=== PATIENT | female | born 1975 ===

== ENCOUNTER 2016-08-24 20:32 | Emergency (ER) | payer MEDICAID ==
[2016-08-24 20:33] VITALS: BMI 29.2
[2016-08-24 21:15] VITALS: TEMP 98.2; O2SAT 98
--- NOTE | 2016-08-24 23:04 | CT ---
EXAM: CT Chest Without Intravenous Contrast CLINICAL HISTORY: 41 years old, female; Signs and symptoms; Other: R/O abscess left breast; Prior surgery; Surgery date: 6+ months; Surgery type: Implants TECHNIQUE: Axial computed tomography images of the chest without intravenous contrast. This CT exam was performed using one or more of the following dose reduction techniques: automated exposure control, adjustment of the mA and/or kV according to patient size, and/or use of iterative reconstruction technique. MIP reconstructed images were created and reviewed. Coronal and sagittal reformatted images were created and reviewed. EXAM DATE/TIME: 08/24/2016 9:31 PM COMPARISON: Recent chest radiographs) 01/21/2016 12:27:27 PM FINDINGS: LUNGS: No evidence of significant focal consolidation/infiltrate in the lungs. No evidence of diffuse pulmonary vascular congestion. PLEURAL SPACE: No pneumothorax or significant pleural effusions seen. HEART: No evidence of significant pericardial effusion. BONES/JOINTS: No acute fractures or other acute bony abnormality noted. SOFT TISSUES: Skin thickening involving the left breast. No focal fluid collection is seen in the left breast on this unenhanced exam to suggest a significant abscess. No evidence of soft tissue gas. Bilateral breast implants in place. No evidence of a significant christiano-implant fluid collection. Symmetric appearance of the breast parenchyma and bilateral breast implants. VASCULATURE: No thoracic aortic aneurysm. LYMPH NODES: No evidence of diffuse lymphadenopathy. IMPRESSION: - Skin thickening involving the left breast. In an acute setting, this could be secondary to cellulitis. Recommend clinical correlation. No focal abscesses identified. - Otherwise, no evidence of significant acute process on this unenhanced exam. - See above for remaining findings.
[2016-08-24 23:25] VITALS: BP 150/91; PULSE 93; RESP 18
[2016-08-24] MEDS ORDERED: Tmp-Smz 800 mg-160 mg DS Tab PO ONE (23:39)
--- NOTE | 2016-08-24 23:49 | ED PDOC ---
Arrival/HPI - General Chief Complaint: Breast Problem Time Seen by Provider: 08/24/16 21:11 Historian: Patient - History of Present Illness Narrative History of Present Illness (Text): 08/24/16 23:47 Laila Sanchez is a 41 year old female, with a history of peptic ulcer disease, presents to the emergency department complaining of 3 day duration of left breast swelling and erythema. Patient had breast implants approximately 10 years ago and thinks that they "may be leaking." Denies any fever, chills, headache, dizziness, nausea, vomiting, diarrhea, urinary symptoms or any other complaints at this time. Time/Duration: < week (3 days ) Symptom Onset: Gradual Symptom Course: Worsening Severity Level: Mild Activities at Onset: Light Past Medical History - Provider Review Nursing Documentation Reviewed: Yes - Infectious Disease Hx of Infectious Diseases: None - Past Medical History Past Medical History: No Previous - Hematological/Oncological Hx Blood Transfusions: No - Musculoskeletal/Rheumatological Hx Falls: No - Gastrointestinal Hx Gastrointestinal Ulcer: Yes - Psychiatric Hx Substance Use: No - Past Surgical History Past Surgical History: No Previous - Surgical History Other/Comment: breast implant - Anesthesia Hx Anesthesia: Yes Hx Anesthesia Reactions: Yes (tachycardia) Hx Malignant Hyperthermia: No Family/Social History - Physician Review Nursing Documentation Reviewed: Yes Family/Social History: No Known Family HX Smoking Status: Never Smoked Hx Alcohol Use: Yes Frequency of alcohol use: Socially Hx Substance Use: No Hx Substance Use Treatment: No Allergies/Home Meds Allergies/Adverse Reactions: Allergies No Known Allergies Allergy (Verified 02/28/14 05:03) Home Medications: Home Meds Medication Instructions Recorded Confirmed Omeprazole/Sodium Bicarbonate 1 cap PO 08/10/15 [Zegerid 20 mg Capsule] Review of Systems - Physician Review All systems were reviewed & negative as marked: Yes - Review of Systems Constitutional: Normal. absent: Fatigue, Fevers Respiratory: Normal. absent: SOB, Cough, Sputum Cardiovascular: Normal. absent: Chest Pain, Palpitations Gastrointestinal: Normal. absent: Abdominal Pain, Diarrhea, Nausea, Vomiting Musculoskeletal: Other (left breast swelling and erythema ) Skin: Normal Neurological: Normal. absent: Headache, Dizziness Psychiatric: Normal Physical Exam Vital Signs Reviewed: Yes Vital Signs Temp Pulse Resp BP Pulse Ox 08/24/16 23:00 93 H 18 150/91 H 98 08/24/16 21:14 98.2 F 95 H 20 153/90 H 98 Temperature: Afebrile Blood Pressure: Normal Pulse: Tachycardic Respiratory Rate: Normal Appearance: Positive for: Well-Appearing, Non-Toxic, Comfortable Pain Distress: None Mental Status: Positive for: Alert and Oriented X 3 - Systems Exam Head: Present: Atraumatic, Normocephalic Pupils: Present: PERRL Conjunctiva: Present: Normal Respiratory/Chest: Present: Clear to Auscultation, Good Air Exchange. No: Respiratory Distress, Accessory Muscle Use Cardiovascular: Present: Regular Rate and Rhythm, Normal S1, S2. No: Murmurs Abdomen: Present: Normal Bowel Sounds. No: Tenderness, Distention, Peritoneal Signs Breast/Axillary: Present: Erythema, Swelling. No: Fluctuance, Masses Upper Extremity: Present: Normal Inspection. No: Cyanosis, Edema Lower Extremity: Present: Normal Inspection. No: Edema Neurological: Present: GCS=15, CN II-XII Intact, Speech Normal, Motor Func Grossly Intact, Normal Sensory Function Skin: Present: Warm, Dry, Normal Color. No: Rashes Psychiatric: Present: Alert, Oriented x 3, Normal Insight, Normal Concentration Medical Decision Making ED Course and Treatment: 08/24/16 23:52 Impression: A 41 year old female who presents to the emergency department complaining of right breast swelling and erythema for past 3 days. Plan: -- CT chest without contrast -- Keflex -- Bactrim -- POC urine pregancy test Progress Notes: 08/25/16 02:54 CT Chest results reviewed. IMPRESSION: - Skin thickening involving the left breast. In an acute setting, this could be secondary to cellulitis. Recommend clinical correlation. No focal abscesses identified. - Otherwise, no evidence of significant acute process on this unenhanced exam. - See above for remaining findings. Patient is stable for discharge. Will discharge patient home on Keflex and Bactrim from cellulitis to left breast. Advised to present to emergency department for worsening symptoms and follow up with PMD within few days. - RAD Interpretation Narrative RAD Interpretations (Text): EXAM: CT Chest Without Intravenous Contrast FINDINGS: LUNGS: No evidence of significant focal consolidation/infiltrate in the lungs. No evidence of diffuse pulmonary vascular congestion. PLEURAL SPACE: No pneumothorax or significant pleural effusions seen. HEART: No evidence of significant pericardial effusion. BONES/JOINTS: No acute fractures or other acute bony abnormality noted. SOFT TISSUES: Skin thickening involving the left breast. No focal fluid collection is seen in the left breast on this unenhanced exam to suggest a significant abscess. No evidence of soft tissue gas. Bilateral breast implants in place. No evidence of a significant christiano-implant fluid collection. Symmetric appearance of the breast parenchyma and bilateral breast implants. VASCULATURE: No thoracic aortic aneurysm. LYMPH NODES: No evidence of diffuse lymphadenopathy. IMPRESSION: - Skin thickening involving the left breast. In an acute setting, this could be secondary to cellulitis. Recommend clinical correlation. No focal abscesses identified. - Otherwise, no evidence of significant acute process on this unenhanced exam. - See above for remaining findings. Radiology Orders: 08/24/16 21:31 CHEST W/O CONTRAST [CT] Stat Adolescent Counselor: Radiologist - Medication Orders Current Medication Orders: Discontinued Medications Cephalexin Monohydrate (Keflex) 500 mg PO STAT STA PRN Reason: Protocol Stop: 08/24/16 23:40 Last Admin: 08/25/16 00:10 Dose: 500 MG Trimethoprim/Sulfamethoxazole (Bactrim Ds Tab) 1 tab PO ONCE ONE PRN Reason: Protocol Stop: 08/24/16 23:40 Last Admin: 08/25/16 00:10 Dose: 1 TAB - Scribe Statement The provider has reviewed the documentation as recorded by the Campos Muñoz Provider Attestation: All medical record entries made by the Campos were at my direction and personally dictated by me. I have reviewed the chart and agree that the record accurately reflects my personal performance of the history, physical exam, medical decision making, and the department course for this patient. I have also personally directed, reviewed, and agree with the discharge instructions and disposition. Disposition/Present on Arrival - Present on Arrival Any Indicators Present on Arrival: No History of DVT/PE: No History of Uncontrolled Diabetes: No Urinary Catheter: No History of Decub. Ulcer: No History Surgical Site Infection Following: None - Disposition Have Diagnosis and Disposition been Completed?: Yes Diagnosis: Cellulitis Disposition: HOME/ ROUTINE Disposition Time: 00:10 Patient Problems: Current Active Problems Problem Status Diagnosed Cholecystitis Acute Cholelithiasis Acute Intractable abdominal pain Acute Condition: GOOD Discharge Instructions (ExitCare): Cellulitis (ED) Prescriptions: Sulfamethoxazole/Trimethoprim [Bactrim DS 800 mg-160 mg] 1 tab PO BID #20 tab Cephalexin [Keflex] 500 mg PO BID #20 capsule Referrals: Lala Muller MD [Primary Care Provider] - Follow up with primary
== END 2016-08-25 00:11 | disposition home or self-care (01) ==
LOC: ED 20:32
DX: N61.0 Mastitis without abscess (principal)